=== PATIENT | female | born 1990 | race Caucasian/White ===

== ENCOUNTER 2016-08-11 19:19 | Emergency (ER) | payer OTHER ==
--- NOTE | ~2016-08-11 | CR93 ---
[facility] A Service of [facility] / [facility] RADIOLOGY TEXT RESULTS PATIENT: DAVID ESPINAL LOCATION: SED : 88 UNIT #: [id number] AGE: [address]: Itzel Page MD SEX: F ORDER DR: [id number] [address] [address] [id number] E MR#: [id number] Acc #: [id number] NAME: DAVID ESPINAL : 1990 SEX: F STUDY DATE/TIME: 08/11/2016 19:37 UNIT: SED ROOM: STUDY DESCRIPTION: CR Elbow Min 3 Views Lt Attending Physician: Itzel Page M.D. Ordering Physician: Itzel Page M.D. MEDICAL IMAGING REPORT This report is preliminary unless electronic signature is present. EXAM Left elbow 3 views 08/11/2016 HISTORY Left elbow pain status post fall in shower at 17:30 today. FINDINGS 3 views of the left elbow demonstrate no fracture. However, there is a prominent anterior and posterior fat pad sign on the lateral view characteristic of elbow joint effusion. The possibility of occult radial head fracture is not excluded on the basis of this examination. Clinical correlation is recommended. The bones are normally mineralized. IMPRESSION No definite fracture is seen but there is a prominent anterior and posterior fat pad sign on the lateral view characteristic of elbow joint effusion. Occult radial head fracture is not excluded on the basis of this examination. Clinical correlation is recommended. STAT * RESULT Dictated by... Franck Cloud M.D. THIS IS AN ELECTRONICALLY VERIFIED REPORT Franck Cloud M.D. at 08/13/2016 6:16 AM KRT/pcl TD: 08/11/2016 20:45 JOB #: [id number] [facility] A Service of [facility] / [facility] RADIOLOGY TEXT RESULTS PATIENT: DAVID ESPINAL LOCATION: [facility] [place] : [birth year] UNIT #: [id number] AGE: [address]: Itzel Page MD SEX: F ORDER DR: MEDICAL IMAGING REPORT Page 1 of 1
--- NOTE | ~2016-08-11 | CR132 ---
[facility] A Service [facility] RADIOLOGY TEXT RESULTS PATIENT: DAVID ESPINAL LOCATION: SED : [birth year] UNIT #: [id number] AGE: [address]: Itzel Page MD SEX: F ORDER DR: [id number] [address] [address] [id number] E MR#: [id number] Acc #: [id number] NAME: DAVID ESPINAL : 1990 SEX: F STUDY DATE/TIME: 08/11/2016 19:37 UNIT: SED ROOM: STUDY DESCRIPTION: CR Forearm 2 View Lt Attending Physician: Itzel Page M.D. Ordering Physician: Itzel Page M.D. Primary Care Physician: No Primary Care Physician MEDICAL IMAGING REPORT This report is preliminary unless electronic signature is present. EXAM Left forearm, 2 views, 08/11/2016. HISTORY Left forearm and elbow pain status post fall in the shower at 1730 today. FINDINGS Two views of the left forearm demonstrate no fracture. However, on the lateral view, there is a prominent anterior and posterior fat pad sign characteristic of elbow joint effusion. Occult radial head fracture is not excluded on the basis of this examination. Clinical correlation is recommended. IMPRESSION No definite fracture is seen but there is a prominent anterior and posterior fat pad sign on the lateral view characteristic of elbow joint effusion. Occult radial head fracture is not excluded on the basis of this exam. Clinical correlation is recommended. Dictated by... Franck Cloud M.D. THIS IS AN ELECTRONICALLY VERIFIED REPORT Franck Cloud M.D. at 08/13/2016 6:19 AM KRT/brittany TD: 08/12/2016 15:29 JOB #: [id number] MEDICAL IMAGING REPORT [facility] A Service [facility] RADIOLOGY TEXT RESULTS PATIENT: DAVID ESPINAL LOCATION: SED : [birth year] UNIT #: [id number] AGE: [address]: Itzel Page MD SEX: F ORDER DR: Page 1 of 1
[~2016-08-11 19:19] MED LIST: IBUPROFEN800 MG PO; PHENERGAN25 MG PO
[2016-08-11] MEDS ORDERED: VITAMIN D1000 UNIT (19:26)
[2016-08-11] MEDS ORDERED: FLONASE ALLERG9.9 ML (19:27)
[2016-08-11] MEDS ORDERED: BIRTH CONTROL PILL (19:27)
[2016-08-11] MEDS ORDERED: ZYRTEC (19:27)
[2016-08-11] MEDS ORDERED: AMOXICILLIN875 MG (19:27)
[2016-08-11] MEDS ORDERED: AUGMENTIN (19:27)
== END 2016-08-11 20:45 | disposition home or self-care (01) ==
LOC: SED 19:19
DX: S52.122A Displaced fracture of head of left radius, initial encounter for closed fracture (principal); W18.2XXA Fall in (into) shower or empty bathtub, initial encounter; Y92.002 Bathroom of unspecified non-institutional (private) residence as the place of occurrence of the external cause
CPT/HCPCS: 29105; 73080; 73090; 99283